=== PATIENT | female | born 1990 | race Caucasian/White ===

== ENCOUNTER 2018-09-03 13:37 | Emergency (ER) | payer BC, MEDICAID ==
[~2018-09-03] VITALS: Ht 162.6 cm; Wt 59.1 kg
[2018-09-03 13:38] VITALS: BP 114/61
[2018-09-03] MEDS ORDERED: LIDOCAINE 2% MDV 20 ML VIAL SC ONE (15:30)
[2018-09-03] MEDS ORDERED: IBUP-1022 PO (15:32)
[2018-09-03] MEDS ORDERED: BACT800T5 PO (15:32)
== END 2018-09-03 15:39 | disposition home or self-care (01) ==
LOC: M ED 13:37
DX: N76.4 Abscess of vulva (principal); F17.210 Nicotine dependence, cigarettes, uncomplicated

== ENCOUNTER → 2019-02-11 | Outpatient (CLI) | payer MEDICAID ==
[~2019-02-11] MED LIST: BACT800T5 PO; IBUP-1022 PO
[2019-02-11 17:28] LABS: BASO % 0.6 % (0.0-1.0); EOS % 0.6 % (0.0-3.0); HEMATOCRIT 37.2 % (36.0-47.0); HEMOGLOBIN 12.4 g/dl (12.0-15.5); LYMPH # 1.6 10^3/uL (1.5-5.0); LYMPH % 25.9 % (24.0-44.0); MEAN CORPUSCULAR HEMOGLOBIN 30.2 pg (27.0-33.0); MEAN CORPUSCULAR HGB CONC 33.3 g/dl (32.0-36.5); MEAN CORPUSCULAR VOLUME 90.5 fl (80.0-96.0); MONO # 0.3 10^3/uL (0.0-0.8); MONO % 4.8 % (0.0-5.0); NEUTROPHILS # 4.2 10^3/uL (1.5-8.5); NEUTROPHILS % 67.8 % (36.0-66.0); PLATELET COUNT, AUTOMATED 149 10^3/uL (150-450); RED BLOOD COUNT 4.11 10^6/uL (4.00-5.40); WHITE BLOOD COUNT 6.3 10^3/uL (4.0-10.0)
[2019-02-11 17:34] LABS: TOTAL 25(OH) VITAMIN D 17.4 NG/ML (30.0-100.0)
[2019-02-11 17:44] LABS: RUBELLA IgG QUALITATIVE IMMUNE (IMMUNE)
[2019-02-11 18:13] LABS: HIV 1&2 SCREEN CENTAUR NEGATIVE (NEGATIVE)
[2019-02-11 19:53] LABS: CHLAMYDIA DNA AMPLIFICATION NEGATIVE (NEGATIVE); GC DNA AMPLIFICATION NEGATIVE (NEGATIVE)
[2019-02-13 12:22] LABS: HEPATITIS C VIRUS ABY INDEX 0.1 INDEX (<0.8)
== END ==
LOC: M SMT 14:10
PROVIDERS: ATTEND Advanced Practice Midwife
DX: Z34.82 Encounter for supervision of other normal pregnancy, second trimester (principal); Z3A.00 Weeks of gestation of pregnancy not specified

== ENCOUNTER → 2019-03-05 | Outpatient (CLI) | payer MEDICAID ==
--- NOTE | 2019-03-05 19:20 | REP ---
Obstetric sonography: History: Supervision of for anatomy. Findings: Scanning through the gravid uterus demonstrates a viable single intrauterine gestation in a breech lie. motion is observed and heart rate is recorded at 147 beats per minute. An anterior grade zero placenta is seen without evidence of previa or abruption. Amniotic fluid is subjectively normal. Closed cervical length measured transabdominally is 3.0 cm. No extrauterine abnormalities observed. No anomaly is seen. lower extremities are less than optimally seen due to position. The following additional anatomic structures are identified and felt to be sonographically unremarkable: cranium, choroid plexus, cavum, cerebellum posterior fossa, face and profile, lungs, four-chamber heart with left and right ventricular outflow tract views, diaphragm, left-sided stomach, abdominal wall cord insertion, three-vessel umbilical cord, kidneys and bladder, spine, upper and lower extremities. Biometry chart: BPD is 3.8 cm 17 weeks 3 days head circumference 14.4 cm 17 weeks 5 days abdominal circumference 13.0 cm 18 weeks 4 days femur length 2.5 cm 17 weeks 4 days humeral length 2.5 cm 17 weeks 5 days HC/AC ratio normal 1.11, cephalic index normal 0.71, estimated weight 219 grams, 0 pounds 7 ounces, 35th percentile for 18 weeks 2 days. Impression: Viable single intrauterine gestation at 17 weeks 5 days by today's composite criteria. WILLIAM by today's sonography August 08, 2019. lower extremities were less than optimally seen due to position. Otherwise, anatomic survey is felt to be complete. Electronically Signed by Jaswinder Starkey MD 03/06/2019 07:47 A
== END ==
LOC: M RAD 15:27
PROVIDERS: ATTEND Advanced Practice Midwife
DX: Z34.82 Encounter for supervision of other normal pregnancy, second trimester (principal); Z3A.17 17 weeks gestation of pregnancy

== ENCOUNTER → 2019-06-12 | Outpatient (CLI) | payer OTHER ==
[~2019-06-12] MED LIST changes: +FLINSTONE VITAMINS PO
--- NOTE | 2019-06-13 02:25 | REP ---
Clinical: Anatomical evaluation. Comparison: 03/05/2019 . Findings: Examination demonstrates a single live intrauterine in cephalic presentation. motion is identified by technologist. Placenta is noted anterior and grade I without evidence for placenta previa or abruption. Amniotic fluid volume is normal. Cervix measures 3.3 cm in length and appears closed. No evidence for nuchal cord. Gestational age by LMP 32 weeks 3 day with WILLIAM is 08/04/2019 . Gestational age by first US 32 weeks 3-day with WILLIAM 08/04/2019 . FHR equals 120 beats per minute. Estimated weight 1561 grams ( 5th percentile). Anatomical assessment demonstrates normal structures including four-chamber heart, stomach, cord insertion/three-vessel cord, kidneys/bladder, spine, and extremities. Impression: Single live intrauterine in cephalic presentation demonstrating estimated weight at lower normal range based on age by first ultrasound.
== END ==
LOC: M WHC 13:03
PROVIDERS: ATTEND Specialist
DX: Z34.83 Encounter for supervision of other normal pregnancy, third trimester (principal)

== ENCOUNTER → 2019-06-20 | Outpatient (CLI) | payer OTHER ==
--- NOTE | 2019-06-20 15:06 | REP ---
STAT obstetric ultrasound for biophysical profile: There is a single intrauterine gestation in a vertex presentation. . Gestational age by the first ultrasound is 33 weeks 4 days with an WILLIAM of 08/04/2019. heart rate is 133 beats per minute. The cervix measures 3.2 cm in length. The placenta is anterior without previa or abruptio. The placenta is grade II. Amniotic fluid index: Breathing 2.0 Movement 2.0 Tone 2.0 AFV 2.0 Total 8.0 / 8.0 Umbilical artery Doppler assessment: S/D ratio 2.83 (2.30-3.30) Resistive Index 0.65 (0.59-0.75 Diastolic Velocity 20.0. (>10 cm/sec) Electronically Signed by Paco Parada MD 06/20/2019 02:58 P
== END ==
LOC: M WHC 13:15
PROVIDERS: ATTEND Advanced Practice Midwife
DX: O36.5930 Maternal care for other known or suspected poor fetal growth, third trimester, not applicable or unspecified (principal); Z3A.33 33 weeks gestation of pregnancy

== ENCOUNTER → 2019-06-26 | Outpatient (CLI) | payer OTHER, MEDICAID ==
--- NOTE | 2019-06-26 20:03 | REP ---
Obstetric sonography: Limited study History: growth study with weekly Dopplers. Intrauterine growth restriction. Third trimester study. Comparison exam is from June 20, 2019. Findings: Transabdominal scanning demonstrates a single living intrauterine fetus in a cephalic lie. An anterior grade 2 placenta is seen without evidence of previa or abruption. Amniotic fluid is subjectively normal. SONIA is normal measuring 18.39 cm. Biophysical profile score is 8 out of a possible 8. S/D ratio in the umbilical cord at mid cord level is slightly elevated at 3.3. (2.0-3.0). At the placental insertion the S/D ratio is 3.03. At the insertion the umbilical cord S/D ratio by Doppler is 2.94. Transvaginal scanning demonstrates closed cervical length 2.4 cm. No funneling.
== END ==
LOC: M WHC 15:08
PROVIDERS: ATTEND Advanced Practice Midwife
DX: O36.5930 Maternal care for other known or suspected poor fetal growth, third trimester, not applicable or unspecified (principal)

== ENCOUNTER 2019-06-29 09:58 | Outpatient (CLI) | payer OTHER ==
[~2019-06-29] VITALS: Ht 162.6 cm; Wt 67.9 kg
[2019-06-29 10:11] VITALS: BP 114/62
[2019-06-29] MEDS ORDERED: BETAMETHASONE SOLUSPAN 6MG/ML INJ 5ML (J0702) IM ONE (10:15)
== END 2019-06-29 10:35 | disposition home or self-care (01) ==
LOC: M LDO 09:58
PROVIDERS: ATTEND Obstetrics & Gynecology
DX: O36.5931 Maternal care for other known or suspected poor fetal growth, third trimester, fetus 1 (principal); Z3A.36 36 weeks gestation of pregnancy
CPT/HCPCS: 96372; J0702

== ENCOUNTER 2019-06-30 10:01 | Outpatient (CLI) | payer OTHER ==
[2019-06-30 10:10] VITALS: BP 117/57
[2019-06-30] MEDS ORDERED: BETAMETHASONE SOLUSPAN 6MG/ML INJ 5ML (J0702) IM ONE (10:15)
== END 2019-06-30 10:32 | disposition home or self-care (01) ==
LOC: M LDO 10:01
PROVIDERS: ATTEND Obstetrics & Gynecology
DX: O36.5931 Maternal care for other known or suspected poor fetal growth, third trimester, fetus 1 (principal); Z3A.00 Weeks of gestation of pregnancy not specified
CPT/HCPCS: 96372; J0702

== ENCOUNTER → 2019-07-04 | Outpatient (CLI) | payer OTHER, MEDICAID | LOC: M PLALAB 13:55 | PROVIDERS: ATTEND Advanced Practice Midwife | DX: Z3A.35 35 weeks gestation of pregnancy (principal) ==

== ENCOUNTER → 2019-07-04 | Outpatient (CLI) | payer MEDICAID, OTHER ==
--- NOTE | 2019-07-04 12:44 | REP ---
Clinical: well-being. Growth evaluation. Comparison: 06/26/2019. Findings: Examination demonstrates a single live intrauterine in the cephalic presentation. motion is identified by technologist. Placenta is noted the anterior and grade I I without evidence for placenta previa or abruption. Amniotic fluid volume is normal. Cervix measures 3.7 cm in length and appears closed. No evidence for nuchal cord. Gestational age by LMP 35 weeks 4 days with WILLIAM 08/04/2019 . Gestational age by current measurements 34 weeks 5 days with WILLIAM 08/10/2019 . FHR equals 133 beats per minute. BPD 8.5 cm 34 weeks 2 days HC 31.9 cm 35 weeks 6 days AC 31.5 cm 35 weeks 3 days FL 6.7 cm 34 weeks 3 days HL 6.1 cm 35 weeks 2 days HC/AC ratio 1.01 Estimated weight 2593 grams ( 41st percentile). Biophysical profile score: 8/8 Umbilical cord ( insertion) SD ratio: 2.05 (3.00 - 4.00) Umbilical cord (placenta insertion) SD ratio: 2.56 (2.00 - 3.00) Umbilical cord (mid cord) SD ratio: 2.84 (2.00 - 3.00) Impression: Single live intrauterine in cephalic presentation demonstrating appropriate interval growth. 2. Biophysical profile score 8/8 3. SD ratios as noted above.
== END ==
LOC: M WHC 11:50
PROVIDERS: ATTEND Advanced Practice Midwife
DX: O36.5930 Maternal care for other known or suspected poor fetal growth, third trimester, not applicable or unspecified (principal)

== ENCOUNTER → 2019-07-11 | Outpatient (CLI) | payer OTHER ==
[~2019-07-11] MED LIST changes: +MAPA500T2 PO; +PRENTAB9 PO
--- NOTE | 2019-07-11 14:20 | REP ---
Clinical: well-being Comparison: 07/04/2019 . Findings: Examination demonstrates a single live intrauterine in cephalic presentation. motion is identified by technologist. Placenta is noted posterior fundal and grade I I without evidence for placenta previa or abruption. Amniotic fluid volume is normal. Gestational age by LMP 36 weeks 4 days with WILLIAM 08/04/2019 . FHR equals 146 beats per minute. Biophysical profile score: 8/8 Amniotic fluid index: 12.7 cm Umbilical cord ( insertion) SD ratio: 2.47 (2.88 - 3.88) Umbilical cord (placenta insertion) SD ratio: 2.44 (1.77 - 2.77). Umbilical cord (mid cord) SD ratio: 2.25 (1.77 - 2.77). Impression: Single live advanced gestation in cephalic presentation. Biophysical profile score and amniotic fluid volume are normal.
== END ==
LOC: M WHC 13:18
PROVIDERS: ATTEND Advanced Practice Midwife
DX: O36.5930 Maternal care for other known or suspected poor fetal growth, third trimester, not applicable or unspecified (principal)

== ENCOUNTER 2019-07-15 12:52 | Inpatient (IN) | payer OTHER ==
[~2019-07-15] VITALS: Ht 162.6 cm; Wt 66.6 kg
[~2019-07-15 12:52] MED LIST changes: -MAPA500T2 PO; -PRENTAB9 PO
[2019-07-15 13:17] VITALS: BP 120/65
[2019-07-15] MEDS ORDERED: PRENTAB9 PO (13:19)
[2019-07-15] MEDS ORDERED: MAPA500T2 PO (13:19)
[2019-07-15] MEDS ORDERED: LACTATED RINGER'S 1000 ML IV STA (13:52)
--- NOTE | 2019-07-15 14:19 | HPEPDOC ---
Obstetrical History & Physical General Date of Admission Jul 15, 2019 at 12:52 Primary Care Physician: RAVEN CHIRINOS CNM History of Present Illness Abhay Gavin is a 28-year-old, at 37.5wk gestation who present to labor and delivery for induction of labor. WILLIAM 07/31/2019. Care was established in the second trimester. has been complicated by late entry to care, IUGR (<5%), unknown gestational diabetes status and history of smoking. She was also diagnosed with the flu last week. Patient reports positive movement, denies leakage of fluid or bloody show. She denies painful contractions. Chief Complaint: Induction of labor Information Provided By: Patient Age: 28 : 5 Term: 2 Pre-term: 0 Abortions: 2 Livin Care Care: Good Care Dating Final EDC: Jul 31, 2019 Final EDC by: LMP LMP: Oct 24, 2018 EGA at Admission: 37.5 Antepartum Course Diagnos(e)s SIUP at 37.5wk gestation, late entry to care, IUGR Height (inches): 64 Pre- weight (lbs.): 115 Admission Weight (lbs.): 147 Change in Weight (lbs.): 32 Past Medical History Past Obstetrical History #1: Past Obstetrical History: Primgravida Gestation: 39 (11/2014) Type of Delivery: Spontaneous Vaginal Del. Sex of : Female Weight of (grams): 2977 Past Obstetrical History #2: Past Obstetrical History: Multigravida Gestation: 39 (01/2018) Type of Delivery: Spontaneous Vaginal Del. Sex of Infant: Female Weight of (grams): 3033 FILTER FILLER History: Spontaneous , Human papillomavirus(HPV) Past Medical History Medical History Seasonal allergies, Vitamin D deficiency Family History Significant Family History: Hypertension, Other (Thyroid disease, myocardial infarction) Social History Marital Status: Single Family situation: Spouse/partner home Psychosocial History: Anxiety, Depression * Smoker: current smoker (5-10 cigarettes/daily) Alcohol: Denies Drugs: denies Abuse Violence Screening Have you been hit/kicked/slapp: No Have you been sexually assault: No Allergies Coded Allergies: No Known Allergies (Unverified , 07/15/19) Medications Scheduled No.137/Iron/Folic Acd ( Vitamin Tablet) 1 Each Tablet, 1 TAB PO DAILY Scheduled PRN Acetaminophen (Mapap) 500 Mg Tablet, 1,000 MG PO for PAIN Physical Examination Physical Examination GENERAL: Alert and oriented times three. BREAST: . ABDOMEN: Gravid and non-tender to touch. FETUS: Is vertex (VTX) by sterile vaginal examination (SVE), fetus is vertex (VTX) by Christopher. HEART RATE: Regular rate and rhythm. LUNGS: Clear to auscultation (CTA). EXTREMITIES: No edema. No clonus. Deep tendon reflexes (DTRs) + 2. Vital Signs/I&O Vital Signs Date Time Temp Pulse Resp B/P (MAP) Pulse Ox O2 Delivery O2 Flow Rate FiO2 07/15/19 13:17 97.2 129 16 120/65 (83) Laboratory Data 24H LABS Laboratory Tests 2 07/15/19 13:00: Serology Scanned Report Hepatitis B Testing Pertinent Laboratoy Data Blood Type: B+ RBC Antibody Screen: Negative HIV: Negative Hepatitis B: Negative Hepatitis C: Negative Rapid Plasma Reagin: Nonreactive Rubella: Immune Chlamydia/Gonorrhea: Negative Group B Streptococcus: Negative Anatomy Ultrasound Ultrasound Date: Mar 05, 2019 Placenta Location: Anterior Normal Anatomy: Yes Placenta Previa: No Estimated Weight (grams): 219 (35%) Other Ultrasounds 02/11/2019-TAUS active advanced SIUP; +FH, +FM 03/05/[id number], [id number] (35%), FHR 147, SONIA normal, anatomy normal with the exception of less optional visualization of lower extremities. 06/12/2019-Anatomy [id number], cephalic, AFV normal, EFW 1561g (5%). Anatomy normal. -BPP 8/8 with normal dopplers. 06/26/2019-Growth ultrasound-SIUP, cephalic, AFV normal. FHR 133. EFW 2593g (41%). Incorrect percentage due to wrong WILLIAM being used. BPP 8/8. 06/27/2019-BPP 8/8 with mildly elevated cord dopplers. 07/02/2019-BPP 8/8, improved dopplers. Steroid Therapy Steroid Therapy: Yes Date #1: Jun 29, 2019 Date #2: Jun 30, 2019 Reason IUGR <5% Vaginal Examination Dilation: 1cm Effacement: 60% Station: -2 Cervical Consistency: Medium Cervical Position: Posterior Presentation: Cephalic presentation Position: Vertex (occiput) Assessment Heart Rate (FHR): 130 Variability: Moderate Decelerations: None Tocometer Contractions: No Assessment/Plan Assessment SIUP at 37.5wk gestation, induction of labor for IUGR (<5%). History of smoking and late entry to care. FHR tracing category 1. Unknown gestational diabetes status. Plan Admit to labor and delivery for induction of labor per Dr. Doherty's recommendation due to IUGR (<5%). Diet: Regular. Group B Streptococcus (GBS) negative. Labs and intravenous (IV) per unit protocol. Counseled on Misoprostol and Pitocin for induction of labor (IOL). Lactated Ringers (LR): Bolus 800 mL, then at 125 mL/hr. Anesthesia consult as needed. Anticipate cervical ripening and cervical change. Anticipate normal spontaneous delivery (). C-S as appropriate. RAVEN CHIRINOS CNM Jul 15, 2019 14:19
[2019-07-15 14:21] LABS: HEMATOCRIT 35.1 % (36.0-47.0); HEMOGLOBIN 11.6 g/dl (12.0-15.5); MEAN CORPUSCULAR HEMOGLOBIN 31.2 pg (27.0-33.0); MEAN CORPUSCULAR VOLUME 94.4 fl (80.0-96.0); PLATELET COUNT, AUTOMATED 204 10^3/uL (150-450); RED BLOOD COUNT 3.72 10^6/uL (4.00-5.40); WHITE BLOOD COUNT 12.4 10^3/uL (4.0-10.0)
[2019-07-15 14:30] VITALS: BP 117/59
[2019-07-15] MEDS ORDERED: miSOPROStol 50 MCG 1/2 TAB (S0191) PO ONE (15:00)
[2019-07-15 15:28] VITALS: BP 99/58
--- NOTE | 2019-07-15 17:47 | IPNPDOC ---
Text Note Date of Service The patient was seen on 07/15/19. NOTE Patient and the FOB desire to be discharged from the hospital. They no longer want to proceed with the IOL. She has only received 1 dose of cytotec since being called in for her IOL. They are upset that Claudine is not here to deliver them and they don't want to be stuck in the department and waiting any longer. We reviewed our office policy that it could be any 6 physicians or midwives that they see and that delivers her baby. She wants to come in to the hospital in active labor and not be induced now. All the risks were reviewed with the patient, FOB, and grandmother. Reviewed the reason she is being induced is due to IUGR, which was the recommendation by Dr. Doherty. The FOB did most of the talking and reports if they go into labor they will go to [place] where they know the doctors. The patient states that she doesn't understand why she isn't getting a section if we are concerned. Reviewed we are inducing before it becomes a concern and there is any more compromise. Reviewed that we can monitor her and intervene if necessary. A section isn't indicated at this time given that she has already had 2 vaginal deliveries. Reviewed that she is full term now and induction can be safe at this gestation given her current diagnosis. Extensive education done with patient and family on IUGR, causes, and implications of this. They report they do not want to sit here all day waiting to have a baby. Reviewed the potential for worsening co mpromise and even that can occur. Patient was offered a nicotine patch as she is a smoker and her grandmother stated that "you just need a nicotine patch." Reviewed that she can leave against medical advise. Reviewed this also with Dr. Doherty who is my collaborating physician tiarra and he agrees that they would be leaving agains medical advise. Stated that we can not be responsible for what happens to her or her baby when they leave the hospital. Encouraged patient to make an appointment and be seen this week in the office. Patient desires to leave agains medical advise now. FHR is Category I: FHR baseline is 130, moderate variability, positive accelerations, no decelerations. Contractions: irregular. VS,Fishbone, I+O VS, Fishbone, I+O Laboratory Tests 07/15/19 14:03 Vital Signs Date Time Temp Pulse Resp B/P (MAP) Pulse Ox O2 Delivery O2 Flow Rate FiO2 07/15/19 15:28 94 16 99/58 (72) 07/15/19 13:17 97.2 RAVEN CHIRINOS CNM Jul 15, 2019 17:47
== END 2019-07-15 17:47 | disposition left against medical advice (07) | DRG 951 ==
LOC: M LDI 12:52
PROVIDERS: ADMIT Advanced Practice Midwife; ATTEND Advanced Practice Midwife
PROC: 3E0P7GC Introduction of Other Therapeutic Substance into Female Reproductive, Via Natural or Artificial Opening (ICD-10-PCS; principal; 2019-07-15)
DX: O36.5930 Maternal care for other known or suspected poor fetal growth, third trimester, not applicable or unspecified (principal); O24.419 Gestational diabetes mellitus in pregnancy, unspecified control; Z3A.37 37 weeks gestation of pregnancy; Z53.21 Procedure and treatment not carried out due to patient leaving prior to being seen by health care provider; O99.333 Smoking (tobacco) complicating pregnancy, third trimester; F17.200 Nicotine dependence, unspecified, uncomplicated

== ENCOUNTER → 2019-07-17 | Outpatient (CLI) | payer OTHER ==
[~2019-07-17] MED LIST changes: +MAPA500T2 PO; +PRENTAB9 PO
--- NOTE | 2019-07-17 20:09 | REP ---
Obstetric sonography: Limited study. History: Intrauterine growth restriction. Supervision of . Third trimester study. Findings: Limited obstetric sonography shows a viable single intrauterine gestation in a cephalic lie. An anterior grade 3 placenta is seen without evidence of previa or abruption. Amniotic fluid is subjectively normal. SONIA is normal at 19.9 cm. heart rate is recorded at 135 beats per minute. Biophysical profile score is 8 out of a possible 8. S/D ratio in the umbilical cord artery by Doppler is normal at 2.7.
== END ==
LOC: M WHC 15:42
PROVIDERS: ATTEND Advanced Practice Midwife
DX: O36.5910 Maternal care for other known or suspected poor fetal growth, first trimester, not applicable or unspecified (principal)

== ENCOUNTER 2019-07-23 05:30 | Inpatient (IN) | payer OTHER ==
[2019-07-23] VITALS (10 sets, daily range): BP systolic 95–131; BP diastolic 50–62
[~2019-07-23] VITALS: Ht 162.6 cm; Wt 64.4 kg
[2019-07-23] MEDS ORDERED: BICITRA 30ML SOLN UDC PO ONE (06:00)
[2019-07-23] MEDS ORDERED: LR 1,000 ML IV ONE (06:00)
[2019-07-23] MEDS ORDERED: LR 1,000 ML IV SCH ×2 (06:00→09:30)
[2019-07-23] MEDS ORDERED: ceFAZolin SOD 2 GM in IV 1 EA IV ONE (06:00)
[2019-07-23 06:38] LABS: HEMATOCRIT 31.7 % (36.0-47.0); HEMOGLOBIN 10.6 g/dl (12.0-15.5); MEAN CORPUSCULAR HEMOGLOBIN 31.2 pg (27.0-33.0); MEAN CORPUSCULAR HGB CONC 33.4 g/dl (32.0-36.5); MEAN CORPUSCULAR VOLUME 93.2 fl (80.0-96.0); PLATELET COUNT, AUTOMATED 232 10^3/uL (150-450); WHITE BLOOD COUNT 12.2 10^3/uL (4.0-10.0)
[2019-07-23] MEDS ORDERED: MORPHINE PRES-FREE INJ 10 MG/10 ML VIAL (J2274) As Ordered ONE (07:24)
[2019-07-23] MEDS ORDERED: OXYTOCIN 30 UNITS IN 0.9% NaCl 500ML IV BAG (J2590) As Ordered ONE ×2 (07:24→09:24)
[2019-07-23] MEDS ORDERED: diphenhydrAMINE INJ 50MG/ML VIAL (J1200) IV PRN (07:46)
[2019-07-23] MEDS ORDERED: NALBUPHINE HCL 10 MG/ML AMP (J2300) IV PRN (07:46)
[2019-07-23] MEDS ORDERED: NALOXONE INJ 0.4 MG/1 ML VIAL (J2310) IV PRN ×2 (07:46)
[2019-07-23] MEDS ORDERED: METOCLOPRAMIDE INJ 10MG/2ML VIAL (J2765) IV PRN ×2 (07:46→09:30)
[2019-07-23] MEDS ORDERED: ONDANSETRON 4MG/2ML VIAL (J2405) IV PRN ×2 (07:46→09:30)
[2019-07-23] MEDS ORDERED: PHENYLephrine HCL 500 MCG/5 ML (100MCG/ML) SYRINGE (J2370) As Ordered ONE (07:51)
[2019-07-23] MEDS ORDERED: ePHEDrine SULFATE 25 MG/5 ML(5MG/ML) SYRINGE As Ordered ONE (07:58)
[2019-07-23] MEDS ORDERED: MIDAZOLAM INJ 2 MG/2 ML VIAL (J2250) As Ordered ONE (08:15)
[2019-07-23] MEDS ORDERED: propofoL 200 MG/20 ML VIAL As Ordered ONE ×2 (08:15→08:41)
[2019-07-23] MEDS ORDERED: fentaNYL 100 MCG/2 ML INJECTION (J3010) As Ordered ONE (08:15)
[2019-07-23] MEDS ORDERED: ONDANSETRON 4MG/2ML VIAL (J2405) As Ordered ONE (08:17)
[2019-07-23] MEDS ORDERED: KETOROLAC 60 MG/2 ML VIAL (J1885) As Ordered ONE (08:25)
[2019-07-23] MEDS ORDERED: OXYTOCIN INJ 10 UNITS/ML VIAL (J2590) As Ordered ONE (08:50)
[2019-07-23] MEDS ORDERED: OXYTOCIN DRIP 30 UNITS in IV 1 EA IV SCH (09:10)
[2019-07-23] MEDS ORDERED: MEASLES,MUMPS,RUBELLA VACCINE INJ (MMR-II) (90707) SC SCH (09:15)
[2019-07-23] MEDS ORDERED: RHOGAM 300 MCG (1500 IU) INJ (J2790) IM SCH (09:15)
[2019-07-23] MEDS ORDERED: ONDANSETRON 4 MG ORAL DISINTEGRATING TAB (Q0162 PER 1MG) PO PRN (09:15)
[2019-07-23] MEDS ORDERED: MOM 30ML SUSPENSION UDC PO PRN (09:15)
--- NOTE | 2019-07-23 09:24 | HPEPDOC ---
Obstetrical History & Physical General Date of Admission Jul 23, 2019 at 05:30 History of Present Illness This is a 28-year-old 5, para 2 at 38 weeks 6 days estimated gestational age who presents for scheduled section. Her WILLIAM is 07/31/2019. This was established by midtrimester ultrasound. Her has been complicated by late entry care in the second trimester. Also significant for intrauterine growth restriction. Estimated weight less than the 5th percentile, unknown gestational diabetes status and history of smoking. She was initially scheduled for induction of labor last week. Her induction was started and after a few hours, she declined further intervention and desired a section and left AGAINST MEDICAL ADVICE. Patient is been thoroughly counseled in regards to her diagnoses. She is also expressed desire for elective section has been counseled thoroughly regards to risk of procedure. She has expressed satisfied parity and desires permanent sterilization. Chief Complaint: section Information Provided By: Patient Age: 27 : 5 Term: 2 Livin Care Care: Limited Care Dating Final EDC: Jul 31, 2019 Final EDC by: LMP Antepartum Course Diagnos(e)s Intrauterine growth restriction :received a course of steroids Past Medical History Past Obstetrical History : Past Obstetrical History: Multigravida Type of Delivery: Spontaneous Vaginal Del. Complications: No DIRECTOR ON AIR History: Spontaneous , Human papillomavirus(HPV) Family History Significant Family History: Heart disease, Hypertension Social History Marital Status: Single Psychosocial History: Anxiety, Depression * Smoker: current smoker Alcohol: Denies Drugs: denies Allergies Coded Allergies: No Known Allergies (Unverified , 07/22/19) Medications Scheduled Ibuprofen (Ibuprofen) 800 Mg Tablet, 800 MG PO Q8H No.137/Iron/Folic Acd ( Vitamin Tablet) 1 Each Tablet, 1 TAB PO DAILY Scheduled PRN Acetaminophen (Mapap) 500 Mg Tablet, 1,000 MG PO for PAIN Oxycodone HCl/Acetaminophen (Percocet 5-325 mg Tablet) 1 Each Tablet, 1 TAB PO Q6H PRN for PAIN Oxycodone/Acetaminophen (Oxycodone-Acetaminophen 5-325) 1 Each Tablet, 1-2 TAB PO Q4H PRN for MILD/MODERATE PAIN (PS 1-7) Physical Examination Physical Examination GENERAL: Alert and oriented times three. BREAST: . ABDOMEN: Gravid and non-tender to touch. FETUS: Is vertex (VTX) by sterile vaginal examination (SVE), fetus is vertex (VTX) by Christopher. HEART RATE: Regular rate and rhythm. LUNGS: Clear to auscultation (CTA). Vital Signs/I&O Vital Signs Date Time Temp Pulse Resp B/P (MAP) Pulse Ox O2 Delivery O2 Flow Rate FiO2 07/23/19 06:41 90 98/50 (66) 07/23/19 05:48 97.5 Laboratory Data 24H LABS Laboratory Tests 2 07/22/19 20:31: Serology Scanned Report Hepatitis B Testing 07/23/19 06:27: Nucleated Red Blood Cells % (auto) 0.0 CBC/BMP Laboratory Tests 07/23/19 06:27 Pertinent Laboratoy Data Blood Type: B+ RBC Antibody Screen: Negative HIV: Negative Hepatitis B: Negative Hepatitis C: Negative Rapid Plasma Reagin: Nonreactive Rubella: Immune Chlamydia/Gonorrhea: Negative Group B Streptococcus: Negative Assessment Variability: Moderate Accelerations: Positive Tocometer Contractions: No Assessment/Plan Assessment 1. 28-year-old 5, para 2 at 38 weeks 6 days estimated gestational age, here for scheduled section. Patient has expressed desire for elective section. She is been thoroughly counseled regarding surgical risk and desires to proceed. She is also expressed satisfied parity and desires permanent sterilization. 2.Reassuring status with suspected intrauterine growth restriction Plan Admit and orient. Operations Dispatcher and consent. Plan to proceed with elective section with bilateral [place] tubal ligation DIANA EMMANUEL MD. Jul 23, 2019 09:24
--- NOTE | 2019-07-23 09:29 | ROOPDOC ---
[facility] Report Of Operation Report of Operation DATE OF PROCEDURE: 07/23/19 SURGEON: Brenna Nuñez M.D. INCOME TAX ANALYST: Megha Sanchez CNM PREOPERATIVE DIAGNOSIS: 1. Intrauterine growth restriction 2. Undesired fertility 3. Elective section POSTOPERATIVE DIAGNOSIS: 1. Undesired fertility 2. Elective section ANESTHESIA: Spinal ESTIMATED BLOOD LOSS: 500 URINE OUTPUT: 50 INTRAVENOUS FLUIDS: 1400 ml of LR PREOPERATIVE ANTIBIOTICS:. 2 g of Ancef OPERATIVE FINDINGS: Liveborn male infant, Apgars 7 and 8. Weight was 3340 g, 7 lbs. 6 oz. Meconium-stained amniotic fluid SPECIMENS:. 1. Placenta. 2. Bilateral segments of fallopian tube INDICATIONS FOR PROCEDURE: 28-year-old 5, para 2 at 38 weeks 6 days estimated gestational age with suspected growth extraction. Patient thoroughly counseled regards to her diagnoses. She self expressed desire for elective section. Risks has been reviewed and she desires to proceed. She has expressed satisfied parity with undesired fertility, desires permanent sterilization DESCRIPTION OF PROCEDURE: After informed consent was obtained and written conse nt was reviewed. The patient was brought to the operating room where spinal anesthesia was placed. She was then placed in the supine position with a left lateral tilt. [place] catheter was placed and to gravity. Patient was then prepped and draped in the normal sterile fashion. A timeout operating room was performed identifying the patient, procedure be performed as well as drug allergies. Anesthesia was tested and deemed to be adequate. Pfannenstiel skin incision was made and this was carried down to the underlying rectus fascia. The fascia was then scored and this incision was extended bilaterally. The fascia was then dissected off the underlying rectus muscle superiorly and inferiorly. The rectus muscles were then in the midline. The peritoneum is then entered. Vesicouterine peritoneum was then tented and excised and a bladder flap was created. Mobius retractor was then placed. Next, a curvilinear incision was then made in the lower uterine segment. Amniotomy was performed, productive of meconium stained amniotic fluid. The head was brought to the level of the incision atraumatically and delivered along the shoulders and corpus. The cord was clamped 2. The infant was brought over to the warmer with a good cry. Placenta was drained and delivered grossly intact. The uterus was cleared of all clots and debris and the uterine incision was then closed in 2 layers using 0 V icryl, first in a running locking fashion followed by second layer for imbrication. Attention was then turned to a bilateral [place] tubal ligation. A window was created in the right mesosalpinx. This area was doubly ligated with 3-0 chromic and was excised with good hemostasis noted. In a similar fashion, the left fallopian tube was placed on traction. A window was created in the mesosalpinx. This area was doubly ligated with 3-0 chromic and was excised, and hemostasis was noted. The abdomen suctioned. Surgical sites reinspected and noted be hemostatic. The retractor was then removed. The anterior peritoneum was then reapproximated with 3-0 Vicryl. The rectus muscles were reapproximated 3-0 Vicryl. The fascia was then closed using 0 Vicryl in a running nonlocking fashion. The subcutaneous tissues was then irrigated and suctioned. Subcutaneous tissue was reapproximated using 3-0 Vicryl. Several subdermal stitch is placed using 3-0 Vicryl and the skin was closed with 4-0 Monocryl and subarticular fashion. This incision was then cleaned and dried and was dressed. The patient was then taken to recovery in stable condition. All counts were correct. The couple was decided to do the son Bud My ophthalmology surgical technician Megha Sanchez played in an essential roll during the operation. They assisted with tissue identification retraction, delivery of the , as well as wound closure. BRENNA NUÑEZ MD. Jul 23, 2019 09:29
[2019-07-23] MEDS ORDERED: PERCOCET 5MG/325MG TAB PO PRN (09:30)
[2019-07-23] MEDS ORDERED: fentaNYL 100 MCG/2 ML INJECTION (J3010) IV PRN (09:30)
[2019-07-23] MEDS: PERCOCET 5MG/325MG TAB PO PRN ×2 (12:38→20:50)
[2019-07-23] MEDS: KETOROLAC 30 MG/ML VIAL (J1885) IV SCH ×2 (14:26→20:43)
[2019-07-23] MEDS: LR 1,000 ML IV SCH ×2 (14:27→17:10)
[2019-07-23] MEDS: NICOTINE 21MG/24HR 1 EA TRANSDERMAL TD SCH (16:51)
[2019-07-23] MEDS: DOCUSATE SODIUM 100 MG CAP PO SCH (20:43)
[2019-07-24] MEDS: LR 1,000 ML IV SCH (01:10)
[2019-07-24 02:20] VITALS: BP 112/54
[2019-07-24] MEDS: PERCOCET 5MG/325MG TAB PO PRN ×4 (02:23→16:13)
[2019-07-24] MEDS: KETOROLAC 30 MG/ML VIAL (J1885) IV SCH (02:23)
[2019-07-24 05:39] VITALS: BP 101/55
[2019-07-24 07:21] LABS: HEMATOCRIT 30.2 % (36.0-47.0); HEMOGLOBIN 9.9 g/dl (12.0-15.5); MEAN CORPUSCULAR HEMOGLOBIN 32.1 pg (27.0-33.0); MEAN CORPUSCULAR HGB CONC 32.8 g/dl (32.0-36.5); MEAN CORPUSCULAR VOLUME 98.1 fl (80.0-96.0); PLATELET COUNT, AUTOMATED 214 10^3/uL (150-450); RED BLOOD COUNT 3.08 10^6/uL (4.00-5.40); WHITE BLOOD COUNT 11.9 10^3/uL (4.0-10.0)
--- NOTE | 2019-07-24 07:24 | IPNPDOC ---
Progress Note Date of Service: Jul 24, 2019 Day#: 1 Progress Note SUBJECT: Doing well without complaints. Ambulating, voiding and pain is well- controlled. Reports minimal lochia. +breast feeding OBJECTIVE: VITAL SIGNS: Within normal limits, afebrile. Alert and oriented times three. Abdomen: Fundus firm at U-2. Soft, NTTP. Appropriate tender Incision: dressed. Ext: neg calf tenderness. ASSESSMENT: /postoperative day #1. Primary section with bilateral tubal ligation. Recovering in stable condition. PLAN: 1. Continue routine /postoperative care 2. Discharge plans for tomorrow VS, I&O, 24H, Fishbone Vital Signs/I&O Vital Signs Date Time Temp Pulse Resp B/P (MAP) Pulse Ox O2 Delivery O2 Flow Rate FiO2 07/24/19 06:29 18 07/24/19 05:39 98.7 69 101/55 (70) 97 Room Air I&O- Last 24 Hours up to 6 AM 07/24/19 06:00 Intake Total 4310 ml Output Total 2270 ml Balance 2040 ml Laboratory Data 24H LABS Laboratory Tests 2 07/24/19 06:27: Nucleated Red Blood Cells % (auto) 0.0 CBC/BMP Laboratory Tests 07/24/19 06:27 DIANA EMMANUEL MD. Jul 24, 2019 07:24
[2019-07-24] MEDS ORDERED: guaiFENesin DM LIQ 10ML UD PO PRN (07:30)
[2019-07-24] MEDS: DOCUSATE SODIUM 100 MG CAP PO SCH ×2 (08:28→22:09)
[2019-07-24] MEDS: PRENATAL VITAMINS CHEWABLE TABLET PO SCH (08:28)
[2019-07-24 10:08] VITALS: BP 114/57
[2019-07-24] MEDS: IBUPROFEN 800 MG TAB PO SCH ×2 (10:34→18:27)
[2019-07-24] MEDS: NICOTINE 21MG/24HR 1 EA TRANSDERMAL TD SCH (10:34)
[2019-07-24 14:05] VITALS: BP 117/53
[2019-07-24] MEDS ORDERED: IBUP80TA PO (16:51)
[2019-07-24] MEDS ORDERED: PERCOCET PO (16:51)
[2019-07-24 17:52] VITALS: BP 117/56
[2019-07-24 22:00] VITALS: BP 107/53
[2019-07-25] MEDS: PERCOCET 5MG/325MG TAB PO PRN (01:07)
[2019-07-25] MEDS: IBUPROFEN 800 MG TAB PO SCH (02:31)
[2019-07-25 05:30] VITALS: BP 100/49
[2019-07-25] MEDS: PRENATAL VITAMINS CHEWABLE TABLET PO SCH (08:37)
[2019-07-25] MEDS: DOCUSATE SODIUM 100 MG CAP PO SCH (08:37)
[2019-07-25] MEDS: NICOTINE 21MG/24HR 1 EA TRANSDERMAL TD SCH (08:37)
--- NOTE | 2019-07-26 10:06 | DSES ---
DATE OF ADMISSION: 07/23/2019 DATE OF DISCHARGE: 07/25/2019 28-year-old G-5, P-2 female, 38 6/7 weeks gestation presents for a scheduled section. The patient was diagnosed with intrauterine growth restriction of the 5th percentile. She was initially scheduled for labor and induction and she has never had a prior section. However, she refused the induction. She requested primary elective section with tubal sterilization. HOSPITAL COURSE: The patient was admitted on 07/23/2019. She was thoroughly cancelled about the risks of surgery and elected to proceed with . On 07/23/2019, she underwent primary low transverse section and bilateral tubal ligation for a 7 pound, 6 ounce infant. There were no complications. Her postoperative course was unremarkable. She had adequate return of bladder and bowel function. Her postoperative hemoglobin is 9.9 grams per dl. She is deemed stable for discharge on postoperative day 2. ADMISSION DIAGNOSIS: 1. , 38 6/7 weeks gestation, possible intrauterine growth restriction (IUGR). DISCHARGE DIAGNOSIS: 1. Delivered. PROCEDURE: Primary low transverse section. Bilateral tubal ligation. DISPOSITION: The patient will followup with Dr. Nuñez in two weeks. Instructions were reviewed.
[2019-07-29] MEDS ORDERED: PERC5TAB12 PO (15:08)
== END 2019-07-25 09:35 | disposition home or self-care (01) | DRG 540 ==
LOC: M LDI 05:30 → M OBS 10:29
PROVIDERS: ADMIT Obstetrics & Gynecology; ATTEND Obstetrics & Gynecology
PROC: 0UB70ZZ Excision of Bilateral Fallopian Tubes, Open Approach (ICD-10-PCS; 2019-07-23)
PROC: 10D00Z1 Extraction of Products of Conception, Low, Open Approach (ICD-10-PCS; principal; 2019-07-23 07:30)
DX: O36.5930 Maternal care for other known or suspected poor fetal growth, third trimester, not applicable or unspecified (principal); Z3A.38 38 weeks gestation of pregnancy; O99.334 Smoking (tobacco) complicating childbirth; F17.200 Nicotine dependence, unspecified, uncomplicated; Z91.19 Patient's noncompliance with other medical treatment and regimen; Z37.0 Single live birth; Z30.2 Encounter for sterilization

== ENCOUNTER 2023-08-21 21:10 | Inpatient (IN) | payer OTHER ==
[~2023-08-21 21:10] MED LIST changes: +IBUP80TA PO; +PERC5TAB12 PO; +PERCOCET PO
[2023-08-22] VITALS (7 sets, daily range): BP systolic 102–129; BP diastolic 55–74; TEMP 97.2–97.9; O2SAT 94–99
[2023-08-22] MEDS: ONDANSETRON 4MG 2ML VIAL IV ONE (00:01)
[2023-08-22] MEDS: MORPHINE 4 MG/ML 1ML VIAL IV PRN (00:02)
[2023-08-22] MEDS: HYDROMORPHONE HCL 0.5 MG/ 0.5 ML SYRINGE IV PRN ×5 (00:23→23:09)
[2023-08-22 00:31] LABS: BASO % 0.2 % (0.0-1.0); HEMATOCRIT 39.1 % (36.0-47.0); HEMOGLOBIN 13.5 g/dl (12.0-15.5); LYMPH # 1.2 10^3/uL (1.5-5.0); LYMPH % 6.5 % (24.0-44.0); MEAN CORPUSCULAR HEMOGLOBIN 31.4 pg (27.0-33.0); MEAN CORPUSCULAR HGB CONC 34.5 g/dl (32.0-36.5); MEAN CORPUSCULAR VOLUME 90.9 fl (80.0-96.0); MONO # 0.4 10^3/uL (0.0-0.8); MONO % 2.2 % (2.0-8.0); NEUTROPHILS # 16.6 10^3/uL (1.5-8.5); NEUTROPHILS % 90.7 % (36.0-66.0); PLATELET COUNT, AUTOMATED 223 10^3/uL (150-450); WHITE BLOOD COUNT 18.3 10^3/uL (4.0-10.0)
[2023-08-22 00:32] LABS: BLOOD UREA NITROGEN 7 MG/DL (9-23); CALCIUM LEVEL 9.2 MG/DL (8.5-10.1); CARBON DIOXIDE LEVEL 20 MMOL/L (20-31); CHLORIDE LEVEL 111 MMOL/L (98-107); GLOMERULAR FILTRATION RATE > 60.0 (>60); GLUCOSE, FASTING 108 MG/DL (60-100); POTASSIUM SERUM 3.5 MMOL/L (3.5-5.1); SODIUM LEVEL 145 MMOL/L (136-145)
[2023-08-22 01:28] LABS: ETHYL ALCOHOL (ETHANOL) 0.018 % (0.000-0.010)
[2023-08-22] MEDS ORDERED: HOME MED LIST COMPLETE! XX SCH (03:30)
[2023-08-22] MEDS: LR 1,000 ML IV SCH ×2 (05:07→19:05)
[2023-08-22] MEDS: NICOTINE 21MG/24HR 1 EA TRANSDERMAL TD SCH (06:00)
[2023-08-22] MEDS ORDERED: NALOXONE INJ 0.4MG/1ML VIAL IV PRN (09:50)
[2023-08-22 12:01] LABS: APPEARANCE, URINE HAZY (CLEAR); BACTERIA, URINE AUTO NEGATIVE (NEGATIVE); BILIRUBIN, URINE AUTO NEGATIVE (NEGATIVE); BLOOD, URINE BLOOD 2+ (NEGATIVE); COLOR, URINE YELLOW (YELLOW); GLUCOSE, URINE (UA) AUTO NEGATIVE (NEGATIVE); KETONE, URINE AUTO 2+ mg/dL (NEGATIVE); LEUKOCYTE ESTERASE, URINE AUTO NEGATIVE (NEGATIVE); MUCUS, URINE SMALL (NEGATIVE); NITRITE, URINE AUTO NEGATIVE (NEGATIVE); PROTEIN, URINE AUTO 1+ mg/dL (NEGATIVE); RBC, URINE AUTO 2 /HPF (0-3); SPECIFIC GRAVITY URINE AUTO 1.024 (1.002-1.035); SQUAMOUS EPITHELIAL CELL UR AU 2 /HPF (0-6); WBC, URINE AUTO 1 /HPF (0-3)
[2023-08-22] MEDS ORDERED: ceFAZolin 1GM VIAL As Ordered ONE (15:33)
[2023-08-22] MEDS ORDERED: ROCURONIUM BROMIDE 50MG/5ML VIAL As Ordered ONE (15:53)
[2023-08-22] MEDS ORDERED: propofoL 200 MG/20 ML VIAL As Ordered ONE (15:53)
[2023-08-22] MEDS ORDERED: LIDOCAINE 2% 100MG/5ML SDV (FOR ANES.) As Ordered ONE (15:53)
[2023-08-22] MEDS ORDERED: MIDAZOLAM INJ 2MG/2ML VIAL As Ordered ONE (15:54)
[2023-08-22] MEDS ORDERED: fentaNYL 100 MCG/2 ML INJECTION As Ordered ONE (15:54)
[2023-08-22] MEDS: ceFAZolin 2 GM/D5W 50 ML IV BAG As Ordered ONE (17:01)
[2023-08-22] MEDS: TRANEXAMIC ACID 100 MG/ML 10ML VIAL As Ordered ONE (17:01)
[2023-08-22] MEDS ORDERED: ACETAMINOPHEN 1000MG 100ML IV BAG As Ordered ONE (17:34)
[2023-08-22] MEDS ORDERED: HYDROmorphone HCL 2MG/ML 1ML VIAL As Ordered ONE (17:48)
[2023-08-22] MEDS ORDERED: SUGAMMADEX SODIUM 500 MG/5 ML VIAL (BRIDION) As Ordered ONE (18:11)
[2023-08-22] MEDS ORDERED: ONDANSETRON 4MG 2ML VIAL As Ordered ONE (18:41)
[2023-08-22] MEDS ORDERED: ONDANSETRON 4MG 2ML VIAL IV PRN (19:05)
[2023-08-22] MEDS ORDERED: fentaNYL 100 MCG/2 ML INJECTION IV PRN (19:05)
[2023-08-22] MEDS: oxyCODONE 5MG TAB PO PRN (19:36)
[2023-08-22] MEDS: HEPARIN SOD (PORCINE) 5000UNITS/ML 1ML VIAL/SYRINGE SC SCH (21:29)
[2023-08-23] VITALS: BP 104/61; TEMP 97.5; O2SAT 95
[2023-08-23] MEDS: ceFAZolin SOD 2 GM in IV 1 EA IV SCH (00:17)
[2023-08-23 01:15] VITALS: BP 105/61; TEMP 97.5; O2SAT 96
[2023-08-23] MEDS: ONDANSETRON 4MG 2ML VIAL IV PRN (02:41)
[2023-08-23 05:15] VITALS: BP 107/63; TEMP 97.9; O2SAT 93
[2023-08-23 07:41] LABS: HEMATOCRIT 28.8 % (36.0-47.0); MEAN CORPUSCULAR HEMOGLOBIN 31.6 pg (27.0-33.0); MEAN CORPUSCULAR HGB CONC 33.7 g/dl (32.0-36.5); MEAN CORPUSCULAR VOLUME 93.8 fl (80.0-96.0); PLATELET COUNT, AUTOMATED 142 10^3/uL (150-450); RED BLOOD COUNT 3.07 10^6/uL (4.00-5.40)
[2023-08-23 07:53] LABS: HEMOGLOBIN 9.7 g/dl (12.0-15.5)
[2023-08-23 08:04] LABS: BLOOD UREA NITROGEN < 5 MG/DL (9-23); CARBON DIOXIDE LEVEL 26 MMOL/L (20-31); CHLORIDE LEVEL 108 MMOL/L (98-107); CREATININE FOR GFR 0.48 MG/DL (0.55-1.30); GLOMERULAR FILTRATION RATE > 60.0 (>60); GLUCOSE, FASTING 88 MG/DL (60-100); POTASSIUM SERUM 3.5 MMOL/L (3.5-5.1); SODIUM LEVEL 143 MMOL/L (136-145)
[2023-08-23 10:00] VITALS: BP 120/72; TEMP 97; O2SAT 97
[2023-08-23] MEDS ORDERED: PERCOCET 5MG/325MG TAB PO PRN (10:15)
[2023-08-23] MEDS: PERCOCET 5MG/325MG TAB PO PRN (10:34)
[2023-08-23 14:02] VITALS: BP 107/64; TEMP 97.7; O2SAT 97
[2023-08-23 19:55] VITALS: BP 108/64; TEMP 98.6; O2SAT 99
[2023-08-24 05:25] VITALS: BP 111/66; TEMP 97.3; O2SAT 99
[2023-08-24 15:56] VITALS: BP 112/66; TEMP 98.4; O2SAT 98
[2023-08-24 20:00] VITALS: BP 122/66; TEMP 98.4; O2SAT 99
[2023-08-25 05:30] VITALS: BP 115/59; TEMP 97.7; O2SAT 98
[2023-08-25 05:37] VITALS: O2SAT 97
[2023-08-25 07:56] LABS: HEMATOCRIT 28.7 % (36.0-47.0); HEMOGLOBIN 9.5 g/dl (12.0-15.5); MEAN CORPUSCULAR HEMOGLOBIN 31.5 pg (27.0-33.0); MEAN CORPUSCULAR HGB CONC 33.1 g/dl (32.0-36.5); PLATELET COUNT, AUTOMATED 145 10^3/uL (150-450); RED BLOOD COUNT 3.02 10^6/uL (4.00-5.40); WHITE BLOOD COUNT 6.9 10^3/uL (4.0-10.0)
[2023-08-25 08:23] LABS: BLOOD UREA NITROGEN 8 MG/DL (9-23); CALCIUM LEVEL 8.6 MG/DL (8.5-10.1); CARBON DIOXIDE LEVEL 26 MMOL/L (20-31); CHLORIDE LEVEL 107 MMOL/L (98-107); CREATININE FOR GFR 0.44 MG/DL (0.55-1.30); GLOMERULAR FILTRATION RATE > 60.0 (>60); GLUCOSE, FASTING 104 MG/DL (60-100); POTASSIUM SERUM 3.1 MMOL/L (3.5-5.1); SODIUM LEVEL 140 MMOL/L (136-145)
[2023-08-25] MEDS ORDERED: MM S100C PO (11:03)
[2023-08-25] MEDS: POTASSIUM CHLORIDE 10MEQ SR TABLET PO ONE (11:40)
[2023-08-25] MEDS ORDERED: PERC5TAB12 PO (11:40)
== END 2023-08-25 13:40 | disposition home health service (06) | DRG 308 ==
LOC: M ED 21:10 → M ED INP 08-22 03:35 → ENRESERV 08-22 04:19 → M MS5PR 08-22 08:30
PROVIDERS: ADMIT Internal Medicine; ATTEND Internal Medicine
PROC: 0QS706Z Reposition Left Upper Femur with Intramedullary Internal Fixation Device, Open Approach (ICD-10-PCS; principal; 2023-08-22 16:00)
DX: S72.142A Displaced intertrochanteric fracture of left femur, initial encounter for closed fracture (principal); F11.10 Opioid abuse, uncomplicated; F17.200 Nicotine dependence, unspecified, uncomplicated; F12.10 Cannabis abuse, uncomplicated; Y08.89XA Assault by other specified means, initial encounter; Y07.030 Male partner, current, perpetrator of maltreatment and neglect; Y92.9 Unspecified place or not applicable; Y93.9 Activity, unspecified; Y99.8 Other external cause status

== ENCOUNTER → 2023-08-30 | Outpatient (CLI) | payer OTHER ==
[~2023-08-30] MED LIST changes: +MM S100C PO
== END ==
LOC: M SOG 08:28
PROVIDERS: ATTEND Orthopaedic Surgery
DX: M25.552 Pain in left hip (principal)

== ENCOUNTER → 2023-09-27 | Outpatient (CLI) | payer OTHER, MEDICAID | LOC: M SOG 13:36 | PROVIDERS: ATTEND Physician Assistant | DX: M25.552 Pain in left hip (principal) ==

== ENCOUNTER → 2023-11-22 | Outpatient (CLI) | payer OTHER, MEDICAID | LOC: M SOG 08:11 | PROVIDERS: ATTEND Physician Assistant | DX: Z53.9 Procedure and treatment not carried out, unspecified reason (principal) ==

== ENCOUNTER → 2023-12-01 | Outpatient (CLI) | payer MEDICAID, OTHER | LOC: M SOG 15:56 | PROVIDERS: ATTEND Physician Assistant | DX: M25.552 Pain in left hip (principal) ==